=== PATIENT | male | born 1950 | race Caucasian/White ===

== ENCOUNTER → 2017-06-24 | Outpatient (CLI) | payer OTHER ==
[~2017-06-24] MED LIST: ALBUTEROL2 PUFFS/17 IN; ALTACE 5MG CAPSU5 MG PO; CIPRO500 MG PO; DOXYCYCLINE HY100 M4 PO; ENTERIC ASPIRI325 MG PO; LORTAB 5/500 501 TAB PO; OMEPRAZOLE40 MG PO; PROMETHAZINE5 ML/UDC PO
--- NOTE | 2017-06-24 15:22 | RADIOLOGY REPORT PS360 ---
CHEST(2 VIEWS-NOT PORTABLE) HISTORY: CHEST CONMGESTION ORDERING PHYSICIAN: Marie Sotelo MD PATIENT AGE: 66 years COMPARISON: 01/29/2017 FINDINGS: The cardiomediastinal silhouette and pulmonary vascularity are within normal limits. Hyperinflation with attenuation of the peripheral pulmonary vessels consistent with COPD. Prominent anterior clear space. No lobar consolidation or collapse.. No acute bony abnormalities. IMPRESSION: COPD, no change with no acute finding
== END ==
LOC: RAD 13:52
DX: R09.89 Other specified symptoms and signs involving the circulatory and respiratory systems (principal)